=== PATIENT | female | born 1960 | race Caucasian/White ===

== ENCOUNTER 2016-11-16 11:33 | Emergency (ER) | payer OTHER ==
[2016-11-16 11:39] VITALS: BP 135/74; PULSE 113; TEMP 99.1; BMI 28.3
[2016-11-16] MEDS ORDERED: ALBUTEROL SO4 2.5/IPRATROPIUM 0.5 INH SOL 3 ML VIAL.NEB. NEB STA (12:23)
[2016-11-16] MEDS ORDERED: ALBUTEROL SO4 2.5/IPRATROPIUM 0.5 INH SOL 3 ML VIAL.NEB. NEB ONE (12:30)
--- NOTE | 2016-11-16 12:36 | PDOC ---
[id number] 4d COLD, COUGH Time Seen by Provider: 11/16/16 12:12 History Source: Patient Exam Limitations: No Limitations - History of Present Illness Initial Comments: 11/16/16 12:28 56 yr female with history of HIV, Asthma presents with cough chest congestion sore throat . no fever no chills. Pt taking OTC meds with no relief. 11/16/16 14:02 11/16/16 14:08 Past History - Past Medical History Allergies/Adverse Reactions: Allergies Allergy/AdvReac Type Severity Reaction Status Date / Time Iodinated Contrast Media - Allergy Severe Hives Verified 11/16/16 11:39 Oral and Home Medications: Ambulatory Orders Acetaminophen/Caffeine/Butalb [Fioricet -] 1 tab PO PRN PRN 08/10/12 Meclizine HCl [Antivert -] 12.5 mg PO BID 08/10/12 Cyclobenzaprine HCl [Flexeril -] 10 mg PO TID PRN #20 tablet 07/07/15 Zolpidem Tartrate [Ambien] 10 mg PO PRN PRN 07/07/15 Calcium Carbonate/Vitamin D3 [Calcium 500+D Tablet] 1 each PO BID #60 tablet Efavirenz/Emtricitab/Tenofovir [Atripla Tablet -] 1 tab PO DAILY #30 tab Amlodipine Besylate [Norvasc -] 5 mg PO DAILY #30 tablet 11/14/16 Calcium Carbonate/Vitamin D3 [Calcium 500 + Vit D Caplet] 1 each PO DAILY #30 tablet 11/14/16 Fluticasone/Salmeterol [Advair 250-50 Diskus] 1 each IH BID #1 disk.w.dev Losartan Potassium [Cozaar -] 50 mg PO DAILY #30 tablet 11/14/16 Pravastatin Sodium [Pravachol -] 20 mg PO HS #30 tablet 11/14/16 Albuterol Sulfate Inhaler - [Ventolin HFA Inhaler -] 2 dose IH Q6H PRN #1 inhaler 11/16/16 Azithromycin [Zithromax 250mg Tablets -] 250 mg PO UTDICT #6 tab 11/16/16 Fluticasone Prop 0.05% Nasal [Flonase -] 1 - 2 spray NS DAILY #1 spray.pump Anemia: Yes Asthma: Yes Cancer: No Cardiac Disorders: No CVA: No COPD: No CHF: No Dementia: No Diabetes: No GI Disorders: No Disorders: No HTN: Yes Hypercholesterolemia: Yes HIV: Yes Liver Disease: No Seizures: No Thyroid Disease: No - Surgical History Abdominal Surgery: No Appendectomy: No Cardiac Surgery: No Cholecystectomy: No Lung Surgery: No Neurologic Surgery: No Orthopedic Surgery: Yes (LEFT ANKLE SURGERY ) - Psycho/Social/Smoking Cessation Hx Anxiety: No Suicidal Ideation: No Smoking Status: Yes Smoking History: Never smoked Have you smoked in the past 12 months: No Number of Cigarettes Smoked Daily: 0 If you are a former smoker, when did you quit?: 2000 Cigars Per Day: 0 'Breaking Loose' booklet given: 07/07/15 Hx Alcohol Use: No Drug/Substance Use Hx: No Substance Use Type: None Hx Substance Use Treatment: No *Physical Exam - Vital Signs Last Vital Signs Temp Pulse Resp BP Pulse Ox 99.1 F 113 H 20 135/74 98 11/16/16 11:35 11/16/16 11:35 11/16/16 11:35 11/16/16 11:35 11/16/16 11:35 - Physical Exam General Appearance: Yes: Nourished, Appropriately Dressed HEENT: positive: EOMI, JACOBO, Normal ENT Inspection, TMs Normal, Pharynx Normal, Nasal Congestion Neck: positive: Supple Respiratory/Chest: positive: Lungs Clear, Normal Breath Sounds, Rhonchi ( scattered). negative: Wheezing Cardiovascular: positive: Regular Rhythm, Regular Rate Gastrointestinal/Abdominal: positive: Normal Bowel Sounds, Soft Musculoskeletal: positive: Normal Inspection Extremity: positive: Normal Capillary Refill, Normal Inspection, Normal Range of Motion Integumentary: positive: Normal Color, Dry, Warm Neurologic: positive: Fully Oriented, Alert, Normal Mood/Affect, Normal Response , Motor Strength 5/5 Medical Decision Making - Medical Decision Making 11/16/16 13:20 cc: cough nasal congestion, sore throat , scattered rhonchi no wheezing non toxic afebrile speaking clearly 11/16/16 14:08 pt felt better after 2 nebulizers, no wheezing no rhonchi after treatments will dc home with albuterol inhaler zpack as directed if fever or worsening symptoms pt agrees with plan of care all questions asked and answered. *DC/Admit/Observation/Transfer Diagnosis at time of Disposition: Bronchitis - Discharge Dispostion Disposition: HOME Condition at time of disposition: Good - Prescriptions Prescriptions: Fluticasone Prop 0.05% Nasal [Flonase -] 1 - 2 spray NS DAILY #1 spray.pump Albuterol Sulfate Inhaler - [Ventolin HFA Inhaler -] 2 dose IH Q6H PRN #1 inhaler PRN Reason: Asthma Azithromycin [Zithromax 250mg Tablets -] 250 mg PO UTDICT #6 tab - Patient Instructions Additional Instructions: drink pleanty of water to stay well hydrated take the medications as prescribed, use the flonase nasal spray for congestion or you can take an over the counter decongestant like sudafed use your inhaler as directed for coughing or wheezing start the Zpack antibiotic if you develop fever, chills or worsening cough in 2- 3 days follow with your doctor in 2-3 days
== END 2016-11-16 13:41 | disposition home or self-care (01) ==
LOC: JERFT 11:33
PROC: 3E0F7GC Introduction of Other Therapeutic Substance into Respiratory Tract, Via Natural or Artificial Opening (ICD-10-PCS; principal; 2016-11-16)
PROC: 3E0F7GC Introduction of Other Therapeutic Substance into Respiratory Tract, Via Natural or Artificial Opening (ICD-10-PCS; 2016-11-16)
DX: J40 Bronchitis, not specified as acute or chronic (principal); I10 Essential (primary) hypertension; E78.00 Pure hypercholesterolemia, unspecified; D64.9 Anemia, unspecified; B20 Human immunodeficiency virus [HIV] disease
CPT/HCPCS: 87070; 87430; 94640; 99281-25

== ENCOUNTER 2017-07-27 14:11 | Emergency (ER) | payer OTHER ==
[2017-07-27 14:24] VITALS: BP 129/76; PULSE 87; TEMP 97.9
[2017-07-27] MEDS ORDERED: KETOROLAC TROMETHAMINE 60 MG/2 ML VIAL IM ONE (15:11)
[2017-07-27] MEDS ORDERED: diazePAM 5 MG TABLET PO ONE (15:11)
[2017-07-27] MEDS ORDERED: KETOROLAC TROMETHAMINE 60 MG/2 ML VIAL ONE (15:15)
[2017-07-27] MEDS ORDERED: diazePAM 5 MG TABLET ONE (15:16)
--- NOTE | 2017-07-27 15:18 | PDOC ---
History of Present Illness - General Chief Complaint: Back Pain Stated Complaint: SEVERE BACK PAIN Time Seen by Provider: 07/27/17 14:42 History Source: Patient Exam Limitations: No Limitations - History of Present Illness Initial Comments: 07/27/17 15:12 Placing infant child on Augmentin 4 days ago and when she stood patient had recurrence of chronic low back pain with known herniated lumbar disc. States has been in treatment of pain management at [address] [place] [address] for many years and has used Flexeril, Percocet for her chronic neck pain and none of those resolved this pain. Denies numbness or tingling to hands or feet, denies problems with bowel or bladder, denies fevers Occurred: reports: other (4 days ago ) Severity: reports: severe Pain Location: reports: back Method of Injury: Yes: unknown Modifying Factors: improves with: None Loss of Consciousness: no loss of consciousness Past History - Past Medical History Allergies/Adverse Reactions: Allergies Allergy/AdvReac Type Severity Reaction Status Date / Time Iodinated Contrast- Oral and Allergy Severe Hives Verified 07/27/17 14:20 IV Dye Home Medications: Ambulatory Orders Acetaminophen/Caffeine/Butalb [Fioricet -] 1 tab PO PRN PRN 08/10/12 Zolpidem Tartrate [Ambien] 10 mg PO PRN PRN 07/07/15 Albuterol Sulfate Inhaler - [Ventolin HFA Inhaler -] 2 dose IH Q6H PRN #1 inhaler 05/15/17 Meclizine HCl [Antivert -] 25 mg PO TID #90 tablet 05/16/17 Albuterol Sulfate Inhaler - [Ventolin HFA Inhaler -] 1 - 2 inh PO QID #1 inhaler 06/26/17 Amlodipine Besylate [Norvasc -] 5 mg PO DAILY #30 tablet 06/26/17 Calcium Carb, Citrate/Vit D3 [Calcium + D3 ER Tablet] 1 each PO DAILY #30 tablet.er 06/26/17 Emtricitab/Rilpiviri/Tenof Ala [Odefsey Tablet] 1 each PO DAILY #30 tablet 06/26 Loratadine [Claritin -] 10 mg PO DAILY PRN #30 tablet 06/26/17 Losartan Potassium [Cozaar -] 50 mg PO DAILY #30 tablet 06/26/17 Pravastatin Sodium [Pravachol -] 20 mg PO HS #30 tablet 06/26/17 Cyclobenzaprine HCl [Flexeril -] 10 mg PO TID 07/27/17 Diazepam [Valium] 5 mg PO ONCE #2 tablet MDD 3 07/27/17 Oxycodone HCl/Acetaminophen [Percocet 10-325 mg Tablet] 1 each PO ASDIR Anemia: Yes Asthma: Yes Cancer: No Cardiac Disorders: No CVA: No COPD: No CHF: No Dementia: No Diabetes: No GI Disorders: No Disorders: No HTN: Yes Hypercholesterolemia: Yes Liver Disease: No Seizures: No Thyroid Disease: No - Surgical History Abdominal Surgery: No Appendectomy: No Cardiac Surgery: No Cholecystectomy: No Lung Surgery: No Neurologic Surgery: No Orthopedic Surgery: Yes (LEFT ANKLE SURGERY ) - Suicide/Smoking/Psychosocial Hx Smoking Status: Yes Smoking History: Never smoked Have you smoked in the past 12 months: No Number of Cigarettes Smoked Daily: 0 If you are a former smoker, when did you quit?: 2000 Cigars Per Day: 0 Information on smoking cessation initiated: No 'Breaking Loose' booklet given: 07/07/15 Hx Alcohol Use: No Drug/Substance Use Hx: No Substance Use Type: None Hx Substance Use Treatment: No Review of Systems - Review of Systems Able to Perform ROS?: No Is the patient limited Uzbek proficient: No Constitutional: Yes: Symptoms Reported, See HPI HEENTM: Yes: See HPI. No: Symptoms Reported Respiratory: No: Symptoms reported Musculoskeletal: Yes: Symptoms Reported, See HPI, Back Pain, Muscle Pain Integumentary: Yes: Symptoms Reported, See HPI Neurological: Yes: Symptoms reported, See HPI, Headache. No: Numbness, Paresthesia All Other Systems: Reviewed and Negative *Physical Exam - Vital Signs Last Vital Signs Temp Pulse Resp BP Pulse Ox 97.9 F 87 18 129/76 100 07/27/17 14:07/27/17 14:07/27/17 14:07/27/17 14:07/27/17 14:19 - Physical Exam General Appearance: Yes: Nourished, Appropriately Dressed, Apparent Distress, Moderate Distress, Severe Distress HEENT: positive: JACOBO, Normal ENT Inspection, TMs Normal, Pharynx Normal Neck: positive: Supple. negative: Tender Respiratory/Chest: positive: Lungs Clear Gastrointestinal/Abdominal: positive: Soft. negative: Normal Bowel Sounds, Tender Musculoskeletal: positive: Decreased Range of Motion, Muscle Spasm (and's musculature to the paravertebral spinous muscles of the lumbar spine, has no true bone tenderness crepitus or step-offs, no rashes or lesion.). negative: Normal Inspection, Vertebral Tenderness Extremity: positive: Normal Capillary Refill, Normal Inspection, Normal Range of Motion. negative: Tender Integumentary: positive: Normal Color, Warm, Pale Neurologic: positive: human intelligence II-XII NML intact, Fully Oriented, Alert, Normal Mood/ Affect, Normal Response, Motor Strength 5/5 Progress Note - Progress Note Progress Note: On chronic lumbar back pain. Patient is tearful and writhing. Understands with pain management contract unable to prescribe narcotics. We will give RX 2 tablets of Valium 5 mg additional with 1 tablet of 5 mg Valium here. Has no further changes or worsened neuropathies due to this lumbar spinal issue therefore will continue antispasmodics and anti-inflammatory treatment and encouraged to follow-up with pain management tomorrow *DC/Admit/Observation/Transfer Diagnosis at time of Disposition: Back pain Qualifiers: Back pain location: low back pain Chronicity: acute Back pain laterality: unspecified Sciatica presence: without sciatica Qualified Code(s): M54.5 - Low back pain - Discharge Dispostion Disposition: HOME Condition at time of disposition: Stable Admit: No - Prescriptions Prescriptions: Diazepam [Valium] 5 mg PO ONCE #2 tablet MDD 3 - Patient Instructions Printed Discharge Instructions: DI for Low Back Pain Additional Instructions: Rest, no heavy lifting or exercise until pain is resolved Hot soaks to neck and low back as often as possible/hot showers or Jacuzzis No massage or therapy until spasm is gone Continue ibuprofen 2-200 mg tablets every 6 hours for the next 3 days then as needed for pain and swelling Cyclobenzaprine 1-10mg every 8 hours as needed for spasm May use one 5 mg tablet of Valium every 8 hours CAll and seek attention at pain management program this week If not significant improvement within 24 hours with medication and rest regime, followup with private physician for change in medications and /or therapy.
== END 2017-07-27 15:25 | disposition home or self-care (01) ==
LOC: JER 14:11 → JERFT 14:11
PROC: 3E0233Z Introduction of Anti-inflammatory into Muscle, Percutaneous Approach (ICD-10-PCS; principal; 2017-07-27)
DX: M54.5 Low back pain (principal); M51.26 Other intervertebral disc displacement, lumbar region; I10 Essential (primary) hypertension; E78.00 Pure hypercholesterolemia, unspecified; J45.909 Unspecified asthma, uncomplicated; D64.9 Anemia, unspecified
CPT/HCPCS: 96372; 99281-25

== ENCOUNTER 2017-12-17 14:07 | Emergency (ER) | payer OTHER ==
[2017-12-17 14:47] VITALS: BMI 29.7
--- NOTE | 2017-12-17 15:18 | PDOC ---
*Physical Exam - Vital Signs Last Vital Signs Temp Pulse Resp BP Pulse Ox 97.7 F 99 H 18 130/76 94 L 12/17/17 14:07 12/17/17 14:07 12/17/17 14:07 12/17/17 14:07 12/17/17 14:07 ED Treatment Course - LABORATORY CBC & Chemistry Diagram: 12/17/17 15:30 12/17/17 15:30 Medical Decision Making - Medical Decision Making Ms Monge is a 57 yo F with a history of HIV, asthma, prior history of vertigo She reports that he vertigo began this morning, worse when she stood up No chest pain N oheadache She took her meclizine but this did not help Pt presents to the ER for evaluation No focal neurological deficits - weakness, sensory deficits On examination: Done after patient had received Valium GENERAL: The patient is in no acute distress. NECK: Normal range of motion, supple without lymphadenopathy LUNGS: Breath sounds equal, clear to auscultation bilaterally. No wheezes, and no crackles. HEART:Regular rate and rhythm, normal S1 and S2 without murmur, rub or gallop. ABDOMEN: Soft, nontender, normoactive bowel sounds. No guarding, no rebound. No masses palpable. EXTREMITIES: Normal range of motion, no edema. NEUROLOGICAL: Cranial nerves II through XII grossly intact. Normal speech. No focal neurological deficits. No nystagmus, no focal weakness or numbness No dysmetria MUSCULOSKELETAL: Back non-tender to palpation, no CVA tenderness SKIN: Warm, Dry, normal turgor, no rashes or lesions noted. Upon my assessment, this patient states she feels well She is requesting to be discharged to home Pt can not stay to follow up with her labs Clinical impression: vertigo, initial presentation 12/17/17 18:322 Pt seen by Midlevel Provider under my direct supervision Pt interviewed and examined Ancillary studies reviewed I agree with plan as outlined by LOW Bryant *DC/Admit/Observation/Transfer Diagnosis at time of Disposition: Vertigo - Discharge Dispostion Disposition: HOME Condition at time of disposition: Improved - Prescriptions Prescriptions: Meclizine HCl [Antivert -] 25 mg PO QID #28 tablet - Referrals Referrals: Debra Little MD [Primary Care Provider] - Gene Umana MD [Staff Physician] - - Patient Instructions Printed Discharge Instructions: Vertigo Additional Instructions: Take meclizine as directed and follow-up with Dr. Umana of neurology - Post Discharge Activity
--- NOTE | 2017-12-17 15:49 | PDOC ---
History of Present Illness - General Chief Complaint: Lightheaded Stated Complaint: Lightheaded Time Seen by Provider: 12/17/17 15:01 History Source: Patient - History of Present Illness Associated Symptoms: reports: nausea/vomiting. denies: chest pain, cough, fever /chills, headaches, shortness of breath, syncope Past History - Past Medical History Allergies/Adverse Reactions: Allergies Allergy/AdvReac Type Severity Reaction Status Date / Time Iodinated Contrast- Oral and Allergy Severe Hives Verified 09/06/17 12:44 IV Dye Home Medications: Ambulatory Orders Acetaminophen/Caffeine/Butalb [Fioricet -] 1 tab PO PRN PRN 08/10/12 Zolpidem Tartrate [Ambien] 10 mg PO PRN PRN 07/07/15 Albuterol Sulfate Inhaler - [Ventolin HFA Inhaler -] 2 dose IH Q6H PRN #1 inhaler 05/15/17 Meclizine HCl [Antivert -] 25 mg PO TID #90 tablet 05/16/17 Loratadine [Claritin -] 10 mg PO DAILY PRN #30 tablet 06/26/17 Cyclobenzaprine HCl [Flexeril -] 10 mg PO TID 07/27/17 Diazepam [Valium] 5 mg PO ONCE #2 tablet MDD 3 07/27/17 Oxycodone HCl/Acetaminophen [Percocet 10-325 mg Tablet] 1 each PO ASDIR Albuterol Sulfate Inhaler - [Ventolin HFA Inhaler -] 1 - 2 inh PO QID #1 inhaler 09/11/17 Amlodipine Besylate [Norvasc -] 5 mg PO DAILY #30 tablet 09/11/17 Calcium Carb, Citrate/Vit D3 [Calcium + D3 ER Tablet] 1 each PO DAILY #30 tablet.er 09/11/17 Emtricitab/Rilpiviri/Tenof Ala [Odefsey Tablet] 1 each PO DAILY #30 tablet 09/11 Losartan Potassium [Cozaar -] 50 mg PO DAILY #30 tablet 09/11/17 Pravastatin Sodium [Pravachol -] 20 mg PO HS #30 tablet 09/11/17 Meclizine HCl [Antivert -] 25 mg PO QID #28 tablet 12/17/17 Anemia: No Asthma: Yes Cancer: No Cardiac Disorders: No CVA: No COPD: No CHF: No DVT: No Dementia: No Diabetes: No GI Disorders: No Disorders: No HTN: Yes Hypercholesterolemia: Yes Liver Disease: No Seizures: No Thyroid Disease: No - Surgical History Abdominal Surgery: No Appendectomy: No Cardiac Surgery: No Cholecystectomy: No Lung Surgery: No Neurologic Surgery: No Orthopedic Surgery: Yes (LEFT ANKLE SURGERY ) - Suicide/Smoking/Psychosocial Hx Smoking Status: Yes Smoking History: Never smoked Have you smoked in the past 12 months: No Number of Cigarettes Smoked Daily: 0 If you are a former smoker, when did you quit?: 6 YRS Cigars Per Day: 0 Information on smoking cessation initiated: No 'Breaking Loose' booklet given: 07/07/15 Hx Alcohol Use: No Drug/Substance Use Hx: No Substance Use Type: None Hx Substance Use Treatment: No Review of Systems - Review of Systems Constitutional: No: Chills, Fever Respiratory: No: Shortness of Breath Cardiac (ROS): No: Chest Pain ABD/GI: Yes: Nausea, Vomiting Neurological: Yes: Dizziness. No: Headache, Numbness, Tingling, Weakness *Physical Exam - Vital Signs Last Vital Signs Temp Pulse Resp BP Pulse Ox 97.7 F 99 H 18 130/76 94 L 12/17/17 14:07 12/17/17 14:07 12/17/17 14:07 12/17/17 14:07 12/17/17 14:07 - Physical Exam General Appearance: Yes: Appropriately Dressed. No: Apparent Distress HEENT: positive: Normal Voice Neck: positive: Supple Respiratory/Chest: positive: Lungs Clear, Normal Breath Sounds. negative: Respiratory Distress Cardiovascular: positive: Regular Rate, S1, S2 Integumentary: positive: Dry, Warm Neurologic: positive: Fully Oriented, Alert, Normal Mood/Affect, Motor Strength 5/5, Finger to Nose (no nystagmus, Lane intact, no drift, no ataxia). negative : Facial Droop, Disoriented ED Treatment Course - LABORATORY CBC & Chemistry Diagram: 12/17/17 15:30 12/17/17 15:30 - RADIOLOGY Radiology Studies Ordered: Category Date Time Status CHEST PA & LAT [RAD] Stat Radiology 12/17/17 15:02 Taken Medical Decision Making - Medical Decision Making 12/17/17 15:44 57-year-old female, history of HIV, asthma and vertigo that was diagnosed 6 years ago, here with usual vertigo that started this a.m., worse when standing up. Took last 25mg meclizine tab w/ no improvement. Had 1 e/o n/v while in ED. Not currently nauseous and no headache, visual changes, slurred speech or focal weakness. No recent URI symptoms. See exam Recurrent vertigo No focal deficits, took meclizine this am am w/ no improvement -labs and valium in ED, will reassess 12/17/17 17:59 Pt improved with Valium and requesting discharge. States she rather not wait for the rest of her blood work. Rpt vital normal. DC with refill of meclizine. Neuro follow-up given 12/17/17 18:32 *DC/Admit/Observation/Transfer Diagnosis at time of Disposition: Vertigo - Discharge Dispostion Disposition: HOME Condition at time of disposition: Improved - Prescriptions Prescriptions: Meclizine HCl [Antivert -] 25 mg PO QID #28 tablet - Referrals Referrals: Debra Little MD [Primary Care Provider] - Gene Umana MD [Staff Physician] - - Patient Instructions Printed Discharge Instructions: Vertigo Additional Instructions: Take meclizine as directed and follow-up with Dr. Umana of neurology - Post Discharge Activity
--- NOTE | 2017-12-17 16:36 | EKG ---
Test Reason : Blood Pressure : / mmHG Vent. Rate : 061 BPM Atrial Rate : 061 BPM P-R Int : 162 ms QRS Dur : 076 ms QT Int : 414 ms P-R-T Axes : 040 011 015 degrees QTc Int : 416 ms POOR DATA QUALITY, INTERPRETATION MAY BE ADVERSELY AFFECTED NORMAL SINUS RHYTHM WITH SINUS ARRHYTHMIA NORMAL ECG WHEN COMPARED WITH ECG OF 14-NOV-2016 09:48, NO SIGNIFICANT CHANGE WAS FOUND Confirmed by MITA VALLEJO MD ([id number]) on 12/17/2017 4:36:02 PM Referred By: Confirmed By:MITA VALLEJO MD
[2017-12-17 16:53] LABS: BASO % 0.3 % (0-2.0); EOS % 0.1 % (0-4.5); HEMATOCRIT 37.4 % (32.4-45.2); HEMOGLOBIN 12.6 GM/dL (10.7-15.3); LYMPH % 9.8 % (8-40); MCH 32.7 pg (25.7-33.7); MCHC 33.8 g/dl (32.0-36.0); MEAN CELL VOLUME 96.7 fl (80-96); MEAN PLT VOLUME 8.5 fl (7.5-11.1); MONO % 2.7 % (3.8-10.2); NEUT % 87.1 % (42.8-82.8); PLATELET COUNT 338 K/MM3 (134-434); RBC 3.87 M/mm3 (3.60-5.2); RDW 13.4 % (11.6-15.6); WHITE BLOOD COUNT 11.7 K/mm3 (4.0-10.0)
[2017-12-17] MEDS ORDERED: diazePAM 5 MG TABLET PO ONE (17:12)
[2017-12-17] MEDS ORDERED: diazePAM 5 MG TABLET ONE (17:21)
[2017-12-17 17:27] LABS: ALBUMIN 3.8 g/dl (3.4-5.0); ANION GAP 9 (8-16); BILIRUBIN,TOTAL 0.7 mg/dL (0.2-1.0); BLOOD UREA NITROGEN 16 mg/dL (7-18); CALCIUM 9.1 mg/dL (8.5-10.1); CHLORIDE 104 mmol/L (98-107); CO2 25 mmol/L (21-32); CREATININE 0.8 mg/dL (0.55-1.02); GLUCOSE,RANDOM 114 mg/dL (74-106); SGOT/AST 13 U/L (15-37); SGPT/ALT 24 U/L (12-78); SODIUM 138 mmol/L (136-145); TOT PROT 7.5 g/dl (6.4-8.2)
[2017-12-17 17:30] LABS: ALK PHOS 111 U/L (45-117)
[2017-12-17 18:35] VITALS: BP 120/72; PULSE 78; TEMP 98.8
== END 2017-12-17 18:35 | disposition home or self-care (01) ==
LOC: JER 14:07
DX: R42 Dizziness and giddiness (principal); I10 Essential (primary) hypertension; E78.00 Pure hypercholesterolemia, unspecified
CPT/HCPCS: 36415; 71046-TC-FY; 80053; 82550; 84484; 85025; 93005; 93010; 99281-25

== ENCOUNTER 2018-05-26 11:49 | Day surgery (SDC) | payer OTHER ==
[2018-05-26] MEDS ORDERED: PROPOFOL 20 ML ONE ×2 (12:28)
[2018-05-26 12:34] VITALS: BMI 31.6
[2018-05-26 13:20] VITALS: TEMP 98.6
[2018-05-26 14:58] VITALS: BP 123/82; PULSE 74
== END 2018-05-26 14:55 | disposition home or self-care (01) ==
LOC: JASU-ENDO 11:49
PROVIDERS: ATTEND Internal Medicine Gastroenterology
PROC: 0DBM8ZX Excision of Descending Colon, Via Natural or Artificial Opening Endoscopic, Diagnostic (ICD-10-PCS; principal; 2018-05-26 11:00)
DX: Z12.11 Encounter for screening for malignant neoplasm of colon (principal); D12.4 Benign neoplasm of descending colon; K57.30 Diverticulosis of large intestine without perforation or abscess without bleeding; K64.8 Other hemorrhoids; I10 Essential (primary) hypertension; Z21 Asymptomatic human immunodeficiency virus [HIV] infection status
CPT/HCPCS: 88305-TC

== ENCOUNTER → 2019-07-06 | Outpatient (CLI) | payer OTHER | LOC: YHH 14:21 ==

== ENCOUNTER 2021-03-29 16:52 | Inpatient (IN) | payer OTHER ==
[2021-03-29 18:35] LABS: BASO % 0.1 % (0-2.0); EOS % 0.9 % (0-4.5); HEMATOCRIT 30.9 % (32.4-45.2); HEMOGLOBIN 10.6 GM/dL (10.7-15.3); LYMPH % 6.3 % (8-40); MCH 34.4 pg (25.7-33.7); MCHC 34.3 g/dl (32.0-36.0); MEAN CELL VOLUME 100.3 fl (80-96); MEAN PLT VOLUME 7.1 fl (7.5-11.1); MONO % 85.7 % (3.8-10.2); RBC 3.08 M/mm3 (3.60-5.2); RDW 15.4 % (11.6-15.6)
[2021-03-29 18:40] LABS: PLATELET COUNT 36 K/MM3 (134-434); WHITE BLOOD COUNT 32.4 K/mm3 (4.0-10.0)
[2021-03-29 18:45] LABS: INR 1.29 (0.83-1.09); PROTHROMBIN TIME (PATIENT) 15.5 SEC (9.7-13.0)
[2021-03-29 18:47] LABS: ACTIVATED PTT 27.7 SECONDS (25.2-36.5)
[2021-03-29 19:01] LABS: CHLORIDE 106 mmol/L (98-107); SODIUM 140 mmol/L (136-145)
[2021-03-29 19:04] LABS: ANION GAP 9 MMOL/L (8-16); BLOOD UREA NITROGEN 16.8 mg/dL (7-18); CALCIUM 8.6 mg/dL (8.5-10.1); CO2 25 mmol/L (21-32); GLUCOSE,RANDOM 176 mg/dL (74-106)
[2021-03-29 19:07] LABS: CREATININE 0.9 mg/dL (0.55-1.3); SGOT/AST 36 U/L (15-37); SGPT/ALT 35 U/L (13-61)
[2021-03-29 19:09] LABS: BILIRUBIN,TOTAL 1.2 mg/dL (0.2-1); TOT PROT 7.4 g/dl (6.4-8.2)
[2021-03-29 19:10] LABS: ALK PHOS 109 U/L (45-117)
[2021-03-29 19:14] LABS: URIC ACID 4.3 mg/dL (2.6-7.2)
[2021-03-29 20:16] LABS: LDH 1710 U/L (84-246)
[2021-03-29 20:19] LABS: PLATELET ESTIMATE DECREASED
[2021-03-29 21:42] LABS: RETICULOCYTES 0.56 % (0.5-1.5)
[2021-03-29] MEDS ORDERED: ALLOPURINOL 300 MG TABLET (FP) PO ONE (21:56)
[2021-03-29] MEDS ORDERED: SODIUM CHLORIDE 0.9% 1000 ML INFUS.BAG IV ONE (21:56)
[2021-03-29] MEDS ORDERED: HYDROXYUREA 500 MG CAPSULE PO ONE (21:57)
[2021-03-30] MEDS: ACETAMINOPHEN 325 MG TABLET (FP) PO PRN ×3 (00:03→14:20)
[2021-03-30 00:31] VITALS: BMI 33.3
[2021-03-30 00:59] LABS: PHOSPHOROUS 2.8 mg/dL (2.5-4.9)
[2021-03-30 06:09] LABS: EPI CELLS 27 /uL (0-25.1); HYALINE CASTS 1 /uL (0-3.1); PH,URINE 5.5 (5.0-8.0); URINE APPEARANCE CLEAR; URINE BACTERIA 1037 /uL (0-1359); URINE BILIRUBIN NEGATIVE (NEGATIVE); URINE COLOR YELLOW; URINE GLUCOSE (UA) NEGATIVE (NEGATIVE); URINE KETONE TRACE (NEGATIVE); URINE LEUK ESTERASE NEGATIVE (NEGATIVE); URINE NITRITE NEGATIVE (NEGATIVE); URINE PROTEIN 2+ (NEGATIVE); URINE UROBILINOGEN 0.2 mg/dL (0.2-1.0); URINE WBC 16 /uL (0-25.8)
[2021-03-30 09:04] LABS: HEMATOCRIT 25.8 % (32.4-45.2); HEMOGLOBIN 9.1 GM/dL (10.7-15.3); LYMPH % 6.3 % (8-40); MCHC 35.2 g/dl (32.0-36.0); MEAN PLT VOLUME 7.3 fl (7.5-11.1); MONO % 86.8 % (3.8-10.2); NEUT % 6.9 % (42.8-82.8); PLATELET COUNT 79 K/MM3 (134-434)
[2021-03-30 09:26] LABS: MEAN CELL VOLUME 99.5 fl (80-96)
[2021-03-30 09:30] LABS: MAGNESIUM 1.9 mg/dL (1.8-2.4); URIC ACID 3.3 mg/dL (2.6-7.2)
[2021-03-30 09:31] LABS: ALBUMIN 3.5 g/dl (3.4-5.0); CALCIUM 7.7 mg/dL (8.5-10.1); CREATININE 0.7 mg/dL (0.55-1.3)
[2021-03-30 09:32] LABS: BLOOD UREA NITROGEN 13.4 mg/dL (7-18); TOT PROT 6.4 g/dl (6.4-8.2)
[2021-03-30 09:36] LABS: BILIRUBIN,TOTAL 1.7 mg/dL (0.2-1)
[2021-03-30] MEDS ORDERED: ALLOPURINOL 300 MG TABLET (FP) PO SCH (10:00)
[2021-03-30] MEDS ORDERED: SODIUM CHLORIDE 1,000 ML IV SCH (10:15)
[2021-03-30 10:50] LABS: URINE RBC 24 /uL (0-23.9)
[2021-03-30 10:55] LABS: ANISOCYTOSIS 0
[2021-03-30] MEDS: CEFEPIME IVPB SCH ×2 (10:58→18:02)
[2021-03-30] MEDS: DEXTROSE 5% IVPB SCH ×2 (10:58→18:02)
[2021-03-30] MEDS: WATER IVPB SCH ×2 (10:58→18:02)
[2021-03-30] MEDS ORDERED: EMTRICITAB/RILPIVIRI/TENOF ALA (ODEFSEY) TABLET PO SCH (11:00)
[2021-03-30 11:41] LABS: HEMATOCRIT 27.1 % (32.4-45.2); HEMOGLOBIN 9.3 GM/dL (10.7-15.3); MCH 34.9 pg (25.7-33.7); MCHC 34.5 g/dl (32.0-36.0); MEAN CELL VOLUME 101.2 fl (80-96); MEAN PLT VOLUME 7.9 fl (7.5-11.1); MONO % 86.8 % (3.8-10.2); NEUT % 6.2 % (42.8-82.8); PLATELET COUNT 79 K/MM3 (134-434); RBC 2.67 M/mm3 (3.60-5.2); RDW 15.2 % (11.6-15.6)
[2021-03-30 11:47] LABS: INR 1.29 (0.83-1.09); PROTHROMBIN TIME (PATIENT) 15.7 SEC (9.7-13.0)
[2021-03-30 11:50] LABS: ACTIVATED PTT 26.3 SECONDS (25.2-36.5)
[2021-03-30 11:58] LABS: WHITE BLOOD COUNT 30.9 K/mm3 (4.0-10.0)
[2021-03-30 13:15] LABS: ANISOCYTOSIS 1+; MACROCYTOSIS 0; PLATELET ESTIMATE DECREASED
[2021-03-30 15:41] LABS: PLATELET ESTIMATE DECREASED
[2021-03-30 15:55] VITALS: BP 126/61
[2021-03-30] MEDS ORDERED: PT OWN MED DRAWER 7, Y5N ONE (17:44)
[2021-03-30 23:10] VITALS: PULSE 101; TEMP 99.5
[2021-03-30 23:39] LABS: WHITE BLOOD COUNT 33.8 K/mm3 (4.0-10.0)
[2021-03-31] MEDS ORDERED: PT OWN MED DRAWER 7, Y5N ONE (01:50)
[2021-03-31] MEDS: CEFEPIME IVPB SCH (01:53)
[2021-03-31] MEDS: DEXTROSE 5% IVPB SCH (01:53)
[2021-03-31] MEDS: WATER IVPB SCH (01:53)
== END 2021-03-31 06:33 | disposition short-term general hospital (02) | DRG 691 ==
LOC: JER 16:52 → JERBED 19:22 → J8W 23:40
PROVIDERS: ADMIT Hospitalist; ATTEND Internal Medicine
DX: C95.90 Leukemia, unspecified not having achieved remission (principal); D69.6 Thrombocytopenia, unspecified; B30.3 Acute epidemic hemorrhagic conjunctivitis (enteroviral); D64.9 Anemia, unspecified; E78.5 Hyperlipidemia, unspecified; J45.909 Unspecified asthma, uncomplicated; G89.29 Other chronic pain; Z21 Asymptomatic human immunodeficiency virus [HIV] infection status; Z79.891 Long term (current) use of opiate analgesic
CPT/HCPCS: 36415; 36430; 70450-TC; 71045-TC-FY; 80053; 81003; 82607; 82728; 82746; 83010; 83615; 83735; 84100; 84439; 84443; 84550; 85025; 85045; 85379; 85384; 85610; 85730; 86022; 86850; 86900; 86901; 87040; 87086; 88300-TC; 93005; 93010; 99285-25; C9803; J8999; P9034; U0003; U0005

== ENCOUNTER 2022-03-12 11:22 | Emergency (ER) | payer OTHER ==
[2022-03-12 11:28] VITALS: BMI 30.9
[2022-03-12] MEDS ORDERED: BEBTELOVIMAB (EUA) 175 MG/2 ML VIAL IVPUSH ONE (12:11)
[2022-03-12] MEDS ORDERED: ACETAMINOPHEN 500 MG TABLET (FP) PO ONE (13:08)
[2022-03-12] MEDS ORDERED: ACETAMINOPHEN 500 MG TABLET (FP) ONE (13:37)
[2022-03-12 14:22] VITALS: BP 112/66; PULSE 68; TEMP 98.9
== END 2022-03-12 14:36 | disposition home or self-care (01) ==
LOC: JCOVINFU 11:22
PROC: 3E033GC Introduction of Other Therapeutic Substance into Peripheral Vein, Percutaneous Approach (ICD-10-PCS; principal; 2022-03-12)
DX: U07.1 COVID-19 (principal)
CPT/HCPCS: 96374; 99284-25; M0222; Q0222

== ENCOUNTER 2024-04-29 04:38 | Day surgery (SDC) | payer OTHER ==
[2024-04-23 13:31] VITALS: BMI 31.9
[2024-04-29 10:20] VITALS: TEMP 98.2
[2024-04-29 11:12] VITALS: BP 121/68; PULSE 54; RESP 20
== END 2024-04-29 11:13 | disposition home or self-care (01) ==
LOC: JASU-ENDO 04:38
PROVIDERS: ATTEND Internal Medicine Gastroenterology
PROC: 0DBN8ZX Excision of Sigmoid Colon, Via Natural or Artificial Opening Endoscopic, Diagnostic (ICD-10-PCS; principal; 2024-04-29 10:00)
DX: Z12.11 Encounter for screening for malignant neoplasm of colon (principal); D12.5 Benign neoplasm of sigmoid colon; K63.89 Other specified diseases of intestine; K64.8 Other hemorrhoids; K57.30 Diverticulosis of large intestine without perforation or abscess without bleeding; Z86.010 Personal history of colon polyps; I10 Essential (primary) hypertension
CPT/HCPCS: 88305-TC